=== PATIENT | female | born 1990 | race Caucasian/White ===

== ENCOUNTER 2021-02-26 16:15 | Emergency (ER) | payer BC, SELFPAY ==
[2021-02-26 16:25] VITALS: BP 125/77; PULSE 68; RESP 18; TEMP 37.1; O2SAT 99; BMI 21.7
--- NOTE | 2021-02-26 16:46 | XRR_ITS ---
PROCEDURE INFORMATION: Exam: XR Right Ankle Exam date and time: 02/26/2021 4:54 PM Age: 30 years old Clinical indication: Injury or trauma; Fall; Blunt trauma; Patient HX: Rolled ankle while jump roping x yesterday. Pain, bruising, and swelling to right ankle. ; Additional info: Pain swelling TECHNIQUE: Imaging protocol: XR Right ankle. Views: 3 or more views. COMPARISON: No relevant prior studies available. FINDINGS: Bones/joints: The bones are intact and in normal alignment. Soft tissues: Circumferential soft tissue swelling. XR/XR ankle RT min 3V* [id number] IMPRESSION: No fracture identified.
--- NOTE | 2021-02-26 17:07 | W.ED.EXTPRO ---
HPI - Extremity Problem General: Chief complaint: Extremity Injury, Lower Stated complaint: R. Ankle Injury Time Seen by Provider: 02/26/21 16:25 History of Present Illness: HPI Narrative: 30-year-old female presents to the emergency room with complaints of pain and swelling in the right ankle. 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 She did fall she hit her head but she denies any loss conscious she has been awake and alert without any difficulty she has not had any vomiting. She has been walking on it with pain she rates at about a 3-4 of 10. She has an impressive amount of swelling and ecchymosis about the ankle. MD Complaint: joint swelling and joint pain Onset (ago): day(s) Pain Consistency: constant Location: right Quality: aching Radiation: none Relieving factors: nothing Exacerbating factors: nothing Associated symptoms: Deny arthralgias, chest pain, fever(s), myalgias, rash or short of breath Review of Systems Const: Denies: fever(s) ENMT: Denies: throat pain, ear or mastoid pain, nasal discharge or nasal congestion Card: Denies: chest pain Resp: Denies: dyspnea, productive cough or non-productive cough GI: Denies: abdominal pain, nausea, vomiting, hematemesis, coffee ground emesis, diarrhea, constipation, bloating, hematochezia or melena : Denies: flank pain, difficulty voiding, dysuria, urinary frequency or urinary urgency Skin/Breast: Denies: rash Physical Exam Const: COMMON NORMALS: no acute distress GENERAL APPEARANCE: cooperative and comfortable ORIENTATION/CONSCIOUSNESS: Yes awake, Yes oriented to person, Yes oriented to place and Yes oriented to time HENMT: COMMON NORMALS: normocephalic, atraumatic and hearing grossly normal bilaterally HEAD & SCALP: normocephalic and atraumatic Neck/C-Spine: COMMON NORMALS: full ROM, no lymphadenopathy, supple and no JVD Resp: COMMON NORMALS: normal respiratory effort, No retractions, No use of accessory muscles and clear to auscultation bilaterally AUSCULTATION: clear to auscultation bilaterally Cardio: COMMON NORMALS: no JVD, regular rate, regular rhythm and No murmurs present (Cardio) RATE: regular rate RHYTHM: regular rhythm GI: COMMON NORMALS: Soft to palpation and No hepatosplenomegaly present AUSCULTATION: Yes normoactive bowel sounds PALPATION: Yes Soft to palpation, No Tenderness to palpation present (GI), No Guarding due to palpation present (GI) and Yes No hepatosplenomegaly present Extremity: NARRATIVE EXTREMITY EXAM: 2+ swelling of the right ankle ecchymosis posterior and inferior to the malleoli. Full neurovascularly intact patient is able to dorsi and plantar flexion against resistance without difficulties Neuro: SENSORIUM/ORIENTATION: Yes oriented to person, Yes oriented to place and Yes oriented to time Skin: COMMON NORMALS: no rashes or lesions noted GENERAL SKIN EXAM: no rashes or lesions noted Course Vital Signs: Vital signs: Vital Signs Temperature 98.8 F 02/26/21 16:25 Pulse Rate 68 02/26/21 16:25 Respiratory Rate 18 02/26/21 16:25 Blood Pressure 125/77 02/26/21 16:25 Pulse Oximetry 99 02/26/21 16:25 MDM - Extremity (Nontraumatic) MDM Narrative: Medical decision making narrative: X-ray normal discharge home nonweightbearing for 2 to 3 days we will have her immobilized the posterior splint just due to the amount of swelling that is there. She can use anti-inflammatories as needed if worsens or changes return. Discharge Plan Discharge Patient Disposition: Home Clinical Impression: Ankle sprain and strain Condition: Stable Prescriptions: New diclofenac sodium 75 mg tablet,delayed release (DR/EC) 75 mg PO Q12H PRN (Reason: pain) Qty: 20 RF: 0 methylprednisolone [Medrol (Dean)] 4 mg tablets,dose pack See Rx Instructions .ROUTE .COMPLEX Qty: 21 RF: 0 Discharge Orders: Discharge ED (Routine); Ordered 02/26/21 Ordered By: Niles Andino Referrals: Cristian Barnes DO [Primary Care Provider] - Discharge Diet: Usual diet Discharge Activity: Increase activity as tolerated Patient Instructions: Opioid Safety Activity Restrictions/Additional Instructions: Nonweightbearing with a posterior splint for 2 to 3 days if not improving recheck Coding Level of Care Code ED 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
== END 2021-02-26 18:09 | disposition home or self-care (01) ==
PROVIDERS: Emergency Provider Family Medicine; PCP Family Medicine
DX: S93.401A Sprain of unspecified ligament of right ankle, initial encounter (principal); S96.911A Strain of unspecified muscle and tendon at ankle and foot level, right foot, initial encounter; X50.1XXA Overexertion from prolonged static or awkward postures, initial encounter
CPT/HCPCS: 29505; 73610; 99283

== ENCOUNTER → 2021-03-09 10:15 | Outpatient (BNVA) | payer BC, SELFPAY | PROVIDERS: PCP Family Medicine; Visit Provider Nurse Practitioner Family | DX: Z01.818 Encounter for other preprocedural examination (principal) | CPT/HCPCS: 81025 ==

== ENCOUNTER → 2024-10-09 08:18 | Outpatient (BNVA) | payer BC, SELFPAY | PROVIDERS: PCP Family Medicine; Visit Provider Nurse Practitioner Family | DX: N39.0 Urinary tract infection, site not specified (principal); J01.90 Acute sinusitis, unspecified; B96.89 Other specified bacterial agents as the cause of diseases classified elsewhere | CPT/HCPCS: 81000 ==